=== PATIENT | male | born 1970 | race Caucasian/White ===

== ENCOUNTER 2017-11-29 12:20 | Day surgery (SDC) | payer BC ==
[~2017-11-29] VITALS: Ht 165.1 cm; Wt 71.2 kg
[2017-11-29] VITALS (10 sets, daily range): BP systolic 109–127; BP diastolic 75–96
[~2017-11-29 12:20] MED LIST: PRD20T PO; [UNRECOGNIZED DRUG - CODE] PO
[2017-11-29] MEDS ORDERED: LIDOCAINE 1% INJ 50 ML (XYLOCAINE) VIAL ONE (12:27)
[2017-11-29] MEDS ORDERED: NS IV 1000 ML 1,000 ML ONE (12:27)
[2017-11-29] MEDS ORDERED: HEParin (CATH LAB) 2,000 ML IV ONE (12:27)
[2017-11-29] MEDS ORDERED: NS IV 1000 ML 1,000 ML IV SCH ×2 (12:45→16:22)
--- OUTSIDE RECORDS SUMMARY | 2017-11-29 12:50 | XMS REPORT | Continuity of Care Document ---
Author Author [facility] Organization [facility] Address Unknown Phone Unavailable Allergies Active Description Code Type Severity Reaction Onset Reported/Identified Relationship to Patient Clinical Status Yes No Known Drug Allergies [id number] Drug Allergy Unknown N/A 04/18/2013 Medications There is no data. Problems Date Dx Coded Attending Type Code Diagnosis Diagnosed By 04/18/2013 SEKOU CARRENO MD Ot 351.0 GRIMM'S [place]SY 04/18/2013 SEKOU CARRENO MD Ot 782.0 SKIN SENSATION DISTURB Procedures There is no data. Results There is no data. Encounters ACCT No. Visit Date/Time Discharge Status Pt. Type Provider Facility Loc./Unit Complaint [id number] 04/18/2013 16:28:00 04/18/2013 18:01:00 DIS Emergency SEKOU CARRENO MD [facility] ER MULTIPLE COMPLAINTS [id number] 11/28/2017 10:46:00 PEN Preadmit CHRISTINE CONTEH MD [facility] CARD R07.89 ANTERIOR CHEST WALL PAIN [id number] 11/28/2017 10:45:00 PEN Preadmit CHRISTINE CONTEH MD [facility] CARD R07.89 ANTERIOR CHEST WALL PAIN
[2017-11-29 12:53] LABS: HEMOGLOBIN 16.6 G/DL (13.3-17.7); MEAN PLATELET VOLUME 8.8 FL (7.4-10.4); RED BLOOD COUNT 5.37 10^6/uL (4.35-5.85); RED CELL DISTRIBUTION WIDTH 12.2 % (10.0-14.5); WHITE BLOOD COUNT 7.9 10^3/uL (4.3-11.0)
[2017-11-29] MEDS ORDERED: MULT1CAP27 PO (12:55)
[2017-11-29] MEDS ORDERED: PANT40TA2 PO (12:55)
--- NOTE | 2017-11-29 12:58 | Diagnostic Imaging Report ---
INDICATION: Pre-heart catheterization and mild chest discomfort. TIME OF EXAM: 12:43 p.m. No prior studies are available for comparison. The heart size is normal. The pulmonary vascularity is unremarkable. The lungs are clear. No infiltrate, effusion or pneumothorax is detected. IMPRESSION: No acute cardiopulmonary process is detected. Dictated by: Dictated on workstation # [id number]
[2017-11-29] MEDS ORDERED: INFLUENZA TRIvalent 2017-2018 0.5 ML/45 MCG SYR IM ONE (13:00)
[2017-11-29 13:04] LABS: PROTHROMBIN TIME PATIENT 12.9 SEC (12.2-14.7)
[2017-11-29 13:10] LABS: CHOLESTEROL 165 MG/DL (< 200); HDL CHOLESTEROL 44 MG/DL (40-60); TRIGLYCERIDES 90 MG/DL (<150); VLDL CHOLESTEROL 18 MG/DL (5-40)
[2017-11-29] MEDS ORDERED: MIDAZOLAM 5 MG/5 ML (VERSED) VIAL ONE (14:56)
[2017-11-29] MEDS ORDERED: fentaNYL INJECTION 100 MCG/2 ML AMP ONE (14:56)
--- NOTE | 2017-11-29 15:52 | Cardiac Procedure Note-CS/ASA ---
Pre-Procedure Note Pre-Op Procedure Note H&P Reviewed The H&P was reviewed, patient examined and no changes noted. Date H&P Reviewed: Nov 29, 2017 Time H&P Reviewed: 15:52 Conscious Sedation Pre-Proced Time Reviewed: 15:52 ASA Class: 3 Airway Mallampati Classification: (chitimacha appropriate class) I. II. III, IV Lungs Heart ASA score ASA 1: a normal healthy patient ASA 2: a patient with a mild systemic disease (mid diabetes, controlled hypertension, obesity x ASA 3: a patient with a severe systemic disease that limits activity (angina , COPD, prior Myocardial infarction) ASA 4: a patient with an incapacitating disease that is a constant threat to life (CHF, renal failure) ASA 5: a moribund patient not expected to survive 24 hrs. (ruptured aneurysm) ASA 6: a declared brain patient whose organs are being harvested. For emergent operations, add the letter E after the classification Grade 3 Sedation Plan: Analgesia, Amnesia, Plan communicated to team members, Discussed options with patient/fam, Discussed risks with patient/fam Note The patient is an appropriate candidate to undergo the planned procedure, sedation, and anesthesia. The patient immediately re-assessed prior to indication. CHRISTINE CONTEH MD Nov 29, 2017 3:52 pm
[2017-11-29] MEDS ORDERED: HEParin 1000 UNIT/ML (10ML VIAL) FOR BOLUS ONE (15:55)
[2017-11-29] MEDS ORDERED: NITRO DRIP 25000 MCG/D5W 0 ML IV ONE (15:56)
[2017-11-29] MEDS ORDERED: VERAPAMIL 5 MG/2 ML (CALAN) VIAL IV ONE (16:05)
--- NOTE | 2017-11-29 16:24 | Discharge Inst-Post CATH ---
Discharge Inst-CATH Post Cardiac Cath D/C Inst Follow Up/Plan Appointment with Dr. Ku's office in 2-4 weeks CARDIAC CATH DISCHARGE INSTRUCTIONS *Hold Metformin for 48 hours post heart cath. ACTIVITY * Go Home directly and rest. * Limit activity of the leg (or wrist if it was used) for 7 days including aerobics, swimming, jogging, bicycling, etc. * Restrict stair-climbing for 7 days if possible, if not, climb up with your non -cath leg, then bring together on the same step. * Avoid lifting, pushing, pulling or excessive movement of the affected extremity for 7 days. * Customary sexual activity may be resumed after 2 days-use caution not to use a position that strains or causes pain to the affected extremity. * No driving for 24 hours. * NO SMOKING. * Avoid straining for bowel movements for 7 days. * Gentle walking on level ground is allowed. * Returning to work will depend on the type of procedure and the results. Your doctor will discuss this with you. CALL YOUR DOCTOR FOR ANY OF THE FOLLOWING: *If bleeding from the puncture site occurs- Apply gentle pressure to site with clean cloth and call your doctor or EMS. * If a knot or lump forms under the skin, increases in size, or causes pain. * If bruising appears to be worsening or moving further down your leg instead of disappearing. * Temperature above 101 F. CARE OF YOUR GROIN INCISION; * Bruising or purple discoloration of the skin near the puncture site is common. * You may shower only, no bathtub bathing for 5 days. Be careful to avoid slipping as your leg may feel stiff. * If a closure device was used on your femoral artery, please see the attached guide regarding care of the device and your leg. * REMOVE the dressing from your groin the next day after your procedure in the shower. CARE OF YOUR WRIST INCISION; * Bruising or purple discoloration of the skin near the puncture site is common. * You may shower. * DO NOT submerge wrist. * Remove dressing in 24 hours. CHRISTINE KU MD Nov 29, 2017 4:24 pm
--- NOTE | 2017-11-29 16:27 | Cardiac Cath Report ---
Cardiac Cath Report Physician (s)/Bundle Breaker (s) Physician CHRISTINE CONTEH MD Pre-Procedure Diagnosis Pre-Procedure Diagnosis: Coronary artery disease Post-Procedure Note Procedure Start Date: Nov 29, 2017 Name of Procedure: Left heart catheterization Findings/Procedure Note PROCEDURE NOTE: 47 years old gentleman with abnormal EKG, had a stress test which was abnormal with inferior wall hypokinesia. Decided to proceed with left heart catheterization possible PTCA After explaining the procedure to the patient, all pros and cons were explained, all questions were answered. The patient signed the consent and then she was placed on the cardiac catheterization laboratory. The patient was placed on the cardiac catheterization laboratory. Groin was prepped SL fashion local anesthesia was used. Sheath placed in the right femoral artery. Elie right and left catheter were used to access the coronary system. Elie right was used to cross the aortic valve to the left ventricular cavity , pressure was measured, no left ventricular gram was done At the end of the procedure the sheath was removed. Closure device Mynx was used FINDINGS: Hemodynamics LV 124/24, end-diastolic pressure of 24 Aorta 136/88 mean of 108 ANATOMY: Left Main is free of obstructive disease Left Anterior Descending is free of obstructive disease Left Circumflex is small nondominant with no obstructive disease Right Coronory Artery his dominant artery with mild disease nonobstructive disease CONCLUSION: 1. Mild coronary artery disease nonobstructive disease DISCUSSION AND RECOMMENDATION: Medical therapy is recommended no intervention is needed Anesthesia Type: Conscious Sedation Estimated blood loss (mL): 10 ml Contrast Amount: 34 ml Total Radiation Dose: 121 mGy Post-Procedure Diagnosis Post-operative diagnosis: Chest pain nonspecific etiology Coronary artery disease Right bundle branch block CHRISTINE CONTEH MD Nov 29, 2017 4:27 pm
[2017-11-29] MEDS ORDERED: PATIENT MAY USE OWN MEDS, ALL PO SCH (16:30)
== END 2017-11-29 21:15 | disposition home or self-care (01) ==
LOC: CATH 12:20 → ICU 16:30 → CATH 21:15
PROVIDERS: ATTEND Internal Medicine Cardiovascular Disease
DX: I25.10 Atherosclerotic heart disease of native coronary artery without angina pectoris (principal); K21.9 Gastro-esophageal reflux disease without esophagitis; Z87.891 Personal history of nicotine dependence; Z11.2 Encounter for screening for other bacterial diseases
CPT/HCPCS: 36415; 71045; 80061; 85027; 85610; 85730; 87081; 93306; 93351; 93458

== ENCOUNTER 2017-12-24 16:15 | Observation (INO) | payer BC ==
[~2017-12-24] VITALS: Ht 165.1 cm; Wt 69.7 kg
[~2017-12-24 16:15] MED LIST changes: +MULT1CAP27 PO; +PANT40TA2 PO
--- OUTSIDE RECORDS SUMMARY | 2017-12-24 16:21 | XMS REPORT | Continuity of Care Document ---
Author Author [facility] Organization [facility] Address Unknown Phone Unavailable Allergies Active Description Code Type Severity Reaction Onset Reported/Identified Relationship to Patient Clinical Status Yes No Known Drug Allergies [id number] Drug Allergy Unknown N/A 04/18/2013 Medications There is no data. Problems Date Dx Coded Attending Type Code Diagnosis Diagnosed By 04/18/2013 SEKOU CARRENO MD Ot 351.0 [place] 04/18/2013 SEKOU CARRENO MD Ot 782.0 SKIN SENSATION DISTURB 11/29/2017 CHRISTINE CONTEH MD Ot I25.10 ATHSCL HEART DISEASE OF [place] CORONARY 11/29/2017 CHRISTINE CONTEH MD Ot K21.9 GASTRO-ESOPHAGEAL REFLUX DISEASE WITHOUT 11/29/2017 CHRISTINE CONTEH MD Ot Z11.2 ENCOUNTER FOR SCREENING FOR OTHER BACTER 11/29/2017 CHRISTINE CONTEH MD Ot Z87.891 PERSONAL HISTORY OF NICOTINE DEPENDENCE 11/30/2017 CHRISTINE CONTEH MD Ot I25.10 ATHSCL HEART DISEASE OF [place] CORONARY 11/30/2017 CHRISTINE CONTEH MD Ot K21.9 GASTRO-ESOPHAGEAL REFLUX DISEASE WITHOUT 11/30/2017 CHRISTINE CONTEH MD Ot Z11.2 ENCOUNTER FOR SCREENING FOR OTHER BACTER 11/30/2017 CHRISTINE CONTEH MD Ot Z87.891 PERSONAL HISTORY OF NICOTINE DEPENDENCE 12/01/2017 CHRISTINE CONTEH MD Ot I25.10 ATHSCL HEART DISEASE OF [place] CORONARY 12/01/2017 CHRISTINE CONTEH MD Ot K21.9 GASTRO-ESOPHAGEAL REFLUX DISEASE WITHOUT 12/01/2017 CHRISTINE CONTEH MD Ot Z11.2 ENCOUNTER FOR SCREENING FOR OTHER BACTER 12/01/2017 CHRISTINE CONTEH MD Ot Z87.891 PERSONAL HISTORY OF NICOTINE DEPENDENCE Procedures There is no data. Results Test Result Range Comprehensive metabolic panel - 11/29/17 10:55 Serum or plasma sodium measurement (moles/volume) 142 mmol/L 135-145 Serum or plasma potassium measurement (moles/volume) 4.3 mmol/L 3.6-5.0 Serum or plasma chloride measurement (moles/volume) 105 mmol/L 98-107 Carbon dioxide 30 mmol/L 21-32 Serum or plasma anion gap determination (moles/volume) 7 mmol/L 5-14 Serum or plasma urea nitrogen measurement (mass/volume) 18 mg/dL 7-18 Serum or plasma creatinine measurement (mass/volume) 0.78 mg/dL 0.60-1.30 Serum or plasma urea nitrogen/creatinine mass ratio 23 NRG Serum or plasma creatinine measurement with calculation of estimated glomerular filtration rate > NRG Serum or plasma glucose measurement (mass/volume) 99 mg/dL 70-105 Serum or plasma calcium measurement (mass/volume) 9.6 mg/dL 8.5-10.1 Serum or plasma total bilirubin measurement (mass/volume) 0.4 mg/dL 0.1-1.0 Serum or plasma alkaline phosphatase measurement (enzymatic activity/volume) 115 U/L 40-136 Serum or plasma aspartate aminotransferase measurement (enzymatic activity/ volume) 20 U/L 5-34 Serum or plasma alanine aminotransferase measurement (enzymatic activity/volume ) 36 U/L 0-55 Serum or plasma protein measurement (mass/volume) 8.1 g/dL 6.4-8.2 Serum or plasma albumin measurement (mass/volume) 4.5 g/dL 3.2-4.5 Lipid 1996 panel - 11/29/17 10:55 Serum or plasma triglyceride measurement (mass/volume) 115 mg/dL <150 Serum or plasma cholesterol measurement (mass/volume) 159 mg/dL < 200 Serum or plasma cholesterol in HDL measurement (mass/volume) 41 mg/ dL 40-60 Cholesterol in LDL [mass/volume] in serum or plasma by direct assay 105 mg/dL 1-129 Serum or plasma cholesterol in VLDL measurement (mass/volume) 23 mg/ dL 5-40 THYROID STIMULATING HORMONE - 11/29/17 10:55 THYROID STIMULATING HORMONE 1.47 u[iU]/mL 0.35-4.94 Automated blood complete blood count (hemogram) panel - 11/29/17 12:45 Blood leukocytes automated count (number/volume) 7.9 10*3/uL 4.3-11.0 Blood erythrocytes automated count (number/volume) 5.37 10*6/uL 4.35-5.85 Venous blood hemoglobin measurement (mass/volume) 16.6 g/dL 13.3-17.7 Blood hematocrit (volume fraction) 46 % 40-54 Automated erythrocyte mean corpuscular volume 86 [foz_us] 80-99 Automated erythrocyte mean corpuscular hemoglobin (mass per erythrocyte) 31 pg 25-34 Automated erythrocyte mean corpuscular hemoglobin concentration measurement ( mass/volume) 36 g/dL 32-36 Automated erythrocyte distribution width ratio 12.2 % 10.0-14.5 Automated blood platelet count (count/volume) 279 10*3/uL 130-400 Automated blood platelet mean volume measurement 8.8 [foz_us] 7.4-10.4 PT panel in platelet poor plasma by coagulation assay - 11/29/17 12:45 Prothrombin time (PT) in platelet poor plasma by coagulation assay 12.9 s 12.2-14.7 INR in platelet poor plasma or blood by coagulation assay 1.0 0.8-1.4 Activated partial thromboplastin time (aPTT) in platelet poor plasma bycoagulation assay - 11/29/17 12:45 Activated partial thromboplastin time (aPTT) in platelet poor plasma bycoagulation assay 26 s 24-35 Lipid 1996 panel - 11/29/17 12:45 Serum or plasma triglyceride measurement (mass/volume) 90 mg/dL <150 Serum or plasma cholesterol measurement (mass/volume) 165 mg/dL < 200 Serum or plasma cholesterol in HDL measurement (mass/volume) 44 mg/ dL 40-60 Cholesterol in LDL [mass/volume] in serum or plasma by direct assay 111 mg/dL 1-129 Serum or plasma cholesterol in VLDL measurement (mass/volume) 18 mg/ dL 5-40 Methicillin resistant Staphylococcus aureus (MRSA) screening culture - 12:45 Methicillin resistant Staphylococcus aureus (MRSA) screening culture NEG NRG Encounters ACCT No. Visit Date/Time Discharge Status Pt. Type Provider Facility Loc./Unit Complaint [id number] 11/29/2017 12:20:00 11/29/2017 21:15:00 DIS Outpatient WERO CAAL, CHRISTINE Hickey [facility] CATH R07.89 ANTERIOR CHEST WALL PAIN [id number] 11/28/2017 10:45:00 11/28/2017 23:59:59 CLS Preadmit WERO CAAL, CHRISTINE Hickey [facility] CARD R07.89 ANTERIOR CHEST WALL PAIN [id number] 04/18/2013 16:28:00 04/18/2013 18:01:00 DIS Emergency EV CAAL, SEKOU Man [facility] ER MULTIPLE COMPLAINTS
[2017-12-24] MEDS ORDERED: fentaNYL INJECTION 100 MCG/2 ML AMP IVP ONE ×2 (16:30→19:00)
[2017-12-24] MEDS ORDERED: ONDANSETRON 4 MG/2 ML (SDV) Z0FRAN ONE ×2 (16:39→17:23)
[2017-12-24 16:52] LABS: HEMOGLOBIN 16.2 G/DL (13.3-17.7); MEAN PLATELET VOLUME 9.1 FL (7.4-10.4); RED BLOOD COUNT 5.28 10^6/uL (4.35-5.85); RED CELL DISTRIBUTION WIDTH 12.3 % (10.0-14.5); WHITE BLOOD COUNT 9.9 10^3/uL (4.3-11.0)
[2017-12-24 17:10] LABS: BILIRUBIN,DIRECT 0.1 MG/DL (0.0-0.3); BILIRUBIN,INDIRECT 0.3 MG/DL; BILIRUBIN,TOTAL 0.4 MG/DL (0.1-1.0); CALCIUM 9.1 MG/DL (8.5-10.1); CARBON DIOXIDE 20 MMOL/L (21-32); CHLORIDE 107 MMOL/L (98-107); POTASSIUM 4.3 MMOL/L (3.6-5.0); SODIUM 138 MMOL/L (135-145)
[2017-12-24] MEDS ORDERED: PROMETHAZINE INJ 25 MG/ML (PHENERGAN) AMP ONE (17:28)
[2017-12-24 17:29] LABS: ALANINE AMINOTRANSFERASE 51 U/L (0-55); ALBUMIN 4.5 GM/DL (3.2-4.5); ALKALINE PHOSPHATASE 112 U/L (40-136); BUN/CREATININE RATIO 26; CREATININE SERUM 0.77 MG/DL (0.60-1.30); GFR ESTIMATED > 60; GLUCOSE 119 MG/DL (70-105); TOTAL PROTEIN 7.9 GM/DL (6.4-8.2)
--- NOTE | 2017-12-24 17:29 | Diagnostic Imaging Report ---
EXAM: Chest 1 view, AP/PA only. INDICATION: Trauma. Loss of consciousness. COMPARISON: Chest, 11/29/2017. FINDINGS: Normal heart size and pulmonary vascularity. No focal pulmonary opacity, pleural effusion or pneumothorax. No acute osseous findings. IMPRESSION: No acute cardiopulmonary findings. Dictated by: Dictated on workstation # [id number]
[2017-12-24] MEDS ORDERED: ONDANSETRON 4 MG/2 ML (SDV) Z0FRAN IVP ONE (17:30)
[2017-12-24] MEDS ORDERED: PROMETHAZINE INJ 25 MG/ML (PHENERGAN) AMP IVP ONE (17:30)
--- NOTE | 2017-12-24 17:42 | Diagnostic Imaging Report ---
PROCEDURE: CT head, face, and cervical spine without contrast. TECHNIQUE: Multiple contiguous axial images were obtained through the head, neck, and facial bones without the use of intravenous contrast. Sagittal and coronal reformations through the cervical spine and facial bones were also performed. INDICATION: Trauma. Loss of consciousness. COMPARISON: None. FINDINGS: CT HEAD AND MAXILLOFACIAL: No intracranial hemorrhage, mass effect, hydrocephalus, or extra-axial fluid collections. No CT evidence of acute infarction. The mastoids are clear. Minimally displaced fractures involving the floor and lateral wall of the left orbit. No CT evidence of extraocular muscle entrapment. There are more moderately displaced fractures involving the anterior, posterior, and medial murphy of the left maxillary sinus with blood products throughout the left maxillary sinus. The lamina papyracea appears intact. Bilateral nasal bone fractures with moderate leftward angulation. Impacted fracture of the anterior nasal septum. There is a fracture line extending from the left maxillary sinus into the midline maxillary alveolar ridge. Normal alignment of the temporomandibular joints. The mandible is intact. CT CERVICAL SPINE: Reversal of the normal cervical lordosis may be positional or due to muscle spasm. No fractures. Vertebral body heights are preserved. No high-grade spinal canal or neural foraminal narrowing is evident on this noncontrast exam. The visualized paravertebral soft tissues are unremarkable. IMPRESSION: 1. Multiple left facial fractures involving the left orbit, left maxillary sinus, nasal bones, nasal septum, and maxillary alveolar ridge as described above. 2. No acute intracranial or cervical spine CT findings. Dictated by: Dictated on workstation # [id number]
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
[2017-12-24 20:05] VITALS: BP 129/74
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
[2017-12-24] MEDS ORDERED: PROMETHAZINE INJ 25 MG/ML (PHENERGAN) AMP IV PRN (21:00)
[2017-12-24] MEDS ORDERED: CATHETER FLUSH 10 ML SYR IV PRN (21:00)
[2017-12-24] MEDS ORDERED: cefTRIAXone 1 GM/NS 100 ML IVPB IV ONE ×2 (21:00)
[2017-12-24] MEDS: NS IV 1000 ML 1,000 ML IV SCH (21:49)
[2017-12-24] MEDS: CATHETER FLUSH 10 ML SYR IV SCH (23:57)
[2017-12-25] VITALS: BP 121/68
[2017-12-25] MEDS: fentaNYL INJECTION 100 MCG/2 ML AMP IV PRN ×4 (00:07→15:59)
[2017-12-25 04:00] VITALS: BP 120/64
[2017-12-25] MEDS: CATHETER FLUSH 10 ML SYR IV SCH ×3 (06:06→20:18)
[2017-12-25] MEDS: ONDANSETRON 4 MG/2 ML (SDV) Z0FRAN IV PRN ×2 (06:50→13:12)
[2017-12-25 08:00] VITALS: BP 123/68
[2017-12-25] MEDS: NS IV 1000 ML 1,000 ML IV SCH ×2 (08:16→17:07)
[2017-12-25] MEDS ORDERED: ACETAMINOPHEN 500 MG TAB (TYLENOL) PO NR (08:30)
[2017-12-25] MEDS ORDERED: AMOX500C2 PO (10:27)
[2017-12-25] MEDS ORDERED: AZIT500T5 PO (10:29)
[2017-12-25] MEDS ORDERED: BUSP15TA60 PO (10:30)
[2017-12-25 12:00] VITALS: BP 111/63
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
[2017-12-25] MEDS ORDERED: busPIRone 5 MG (BUSPAR) TAB PO PRN (13:00)
[2017-12-25] MEDS ORDERED: cefTRIAXone INJECTION 1,000 MG in NS (IVPB) 100 ML IV NR (13:15)
[2017-12-25 13:41] LABS: HEMOGLOBIN 14.9 G/DL (13.3-17.7); MEAN PLATELET VOLUME 8.7 FL (7.4-10.4); RED BLOOD COUNT 4.82 10^6/uL (4.35-5.85); RED CELL DISTRIBUTION WIDTH 12.5 % (10.0-14.5); WHITE BLOOD COUNT 13.7 10^3/uL (4.3-11.0)
[2017-12-25] MEDS ORDERED: CLAR-19 PO (13:48)
[2017-12-25] MEDS: PANTOPRAZOLE 40 MG (PROTONIX) TAB PO SCH (14:02)
[2017-12-25 14:04] LABS: BUN/CREATININE RATIO 19; CALCIUM 8.7 MG/DL (8.5-10.1); CARBON DIOXIDE 28 MMOL/L (21-32); CHLORIDE 105 MMOL/L (98-107); CREATININE SERUM 0.75 MG/DL (0.60-1.30); GFR ESTIMATED > 60; GLUCOSE 133 MG/DL (70-105); POTASSIUM 3.8 MMOL/L (3.6-5.0); SODIUM 137 MMOL/L (135-145)
[2017-12-25 16:40] VITALS: BP 126/71
[2017-12-25] MEDS: ACETAMINOPHEN 325 MG TABLET/CAPLET (TYLENOL) PO PRN (18:14)
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
[2017-12-25 20:10] VITALS: BP 123/78
[2017-12-25] MEDS: AMOXICILLIN 500 MG (POLYMOX) CAP PO SCH (20:15)
[2017-12-25] MEDS ORDERED: AZITHROMYCIN 500 MG PO SCH (21:00)
[2017-12-26] VITALS: BP 122/68
[2017-12-26 04:00] VITALS: BP 136/66
[2017-12-26] MEDS: NS IV 1000 ML 1,000 ML IV SCH (04:37)
[2017-12-26] MEDS: fentaNYL INJECTION 100 MCG/2 ML AMP IV PRN ×2 (04:37→09:00)
[2017-12-26] MEDS: CATHETER FLUSH 10 ML SYR IV SCH (04:56)
[2017-12-26] MEDS: PANTOPRAZOLE 40 MG (PROTONIX) TAB PO SCH (06:11)
[2017-12-26 08:00] VITALS: BP 134/83
[2017-12-26] MEDS: AMOXICILLIN 500 MG (POLYMOX) CAP PO SCH (08:59)
[2017-12-26] MEDS ORDERED: AZITHROMYCIN 250 MG TAB (ZITHROMAX) PO SCH (09:00)
[2017-12-26] MEDS: ACETAMINOPHEN 325 MG TABLET/CAPLET (TYLENOL) PO PRN ×2 (09:00→15:13)
[2017-12-26 12:00] VITALS: BP 137/81
[2017-12-26 16:10] VITALS: BP 126/71
--- NOTE | 2017-12-26 17:04 | Discharge Inst-Simple/Standard ---
Discharge Inst-Standard Patient Instructions/Follow Up Plan of Care/Instructions/FU: Follow up: Dr. Yun Monday at scheduled appointment. Dr. Castrejon within 1 week. Opthomology within 1 week. Follow up with Dr. Day on as needed basis. Activity as Tolerated: No (Not until released by your follow up appointments.) Discharge Diet: Regular Diet Other Inst to Patient Symptoms to Report: Appetite Changes, Extremity Discoloration, Numbness/Tingling, Swelling Increased , Bleeding Excessive, Eyesight Changes, Pain Increased, Urine Color Change, Constipation(Persistent), Fever over 101 degree F, Pain/Pressure in chest, Urinating Difficulty, Cough Up/Vomit Blood, Heart Beat Irreg/Pounding, Pain/ Pressure in jaw, Vaginal Bleeding Increase, Cramps in feet or legs, Lightheadedness, Pain/Pressure in shoulder, Diarrhea(Persistent), Memory Changes Suddenly, Questions/Concerns, Weight gain consecutive days, Dizziness/ Fainting, Nausea/Vomiting, Shortness of Breath, Weight gain over 2 pounds, Visual changes. If questions or concerns contact your physician Or seek help at emergency department. SCOUT DAY DO Dec 26, 2017 17:04
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
[2017-12-26 18:10] VITALS: BP 126/71
== END 2017-12-26 16:58 | disposition home or self-care (01) ==
LOC: EDUNIT# 16:15 → ER 16:17 → UNDOADMOB 19:14 → 4TH 19:14 → UNDODISOB 12-26 18:08
PROVIDERS: ADMIT Surgery; ATTEND Surgery
DX: S06.9X9A Unspecified intracranial injury with loss of consciousness of unspecified duration, initial encounter (principal); S02.32XA Fracture of orbital floor, left side, initial encounter for closed fracture; S02.40DA Maxillary fracture, left side, initial encounter for closed fracture; S02.2XXA Fracture of nasal bones, initial encounter for closed fracture; R11.2 Nausea with vomiting, unspecified; B96.81 Helicobacter pylori [H. pylori] as the cause of diseases classified elsewhere; F41.9 Anxiety disorder, unspecified; Y04.0XXA Assault by unarmed brawl or fight, initial encounter
CPT/HCPCS: 36415; 70450; 70486; 71045; 72125; 80048; 80076; 80320; 85027; 94664; 94760; 96374; 96375; 96376; 99283

== ENCOUNTER → 2018-12-07 | Outpatient (CLI) | payer BC ==
[~2018-12-07] MED LIST changes: +AMOX500C2 PO; +AZIT500T5 PO; +BUSP15TA60 PO; +CLAR-19 PO; +CLIN300C11 PO; +HYDR-4226 PO; +LACT1CAP74 PO
[2018-12-07] MEDS: CATHETER FLUSH 10 ML SYR IV PRN (09:14)
--- NOTE | 2018-12-07 11:56 | Diagnostic Imaging Report ---
CLINICAL INDICATION: Patient with diarrhea and abdominal discomfort. COMPARISON: None. PROCEDURE: The patient was administered 5.31 millicuries of technetium 99m Choletec. After 60 minutes of the images, one can of Ensure was drink followed by another 60 minutes of imaging. A nuclear medicine hepatobiliary scan with ejection fraction was performed. FINDINGS: There is prompt uptake and excretion of radiotracer by the liver. Activity is visible in the gallbladder by 10 minutes and the small bowel by 50 minutes. Ejection fraction of the gallbladder is calculated at 62% (normal >33%). The gallbladder visibly empties on the scans following the ingestion of Ensure. IMPRESSION: Normal hepatobiliary scan with normal gallbladder ejection fraction. Dictated by: Dictated on workstation # [id number]
== END ==
LOC: RAD 08:46
PROVIDERS: ATTEND Family Medicine
DX: R19.7 Diarrhea, unspecified (principal)
CPT/HCPCS: 78227